=== PATIENT | male | born 1935 | race Caucasian/White ===

== ENCOUNTER → 2016-11-08 | Outpatient (CLI) | payer MEDICARE, BC ==
[~2016-11-08] MED LIST: EZET1TAB31 PO; INSU100C11 SQ; INSU100C8 SQ; LISI10TA7 PO; NAPR220T61 PO; NITR100C4 PO; PANT40TA27 PO; PHEN-779 PO; SUCR1TAB PO
== END ==
LOC: NEU 08:38
PROVIDERS: ATTEND Family Medicine
DX: M62.441 Contracture of muscle, right hand (principal); G56.01 Carpal tunnel syndrome, right upper limb; M54.12 Radiculopathy, cervical region
CPT/HCPCS: 95886; 95909

== ENCOUNTER 2016-11-30 06:48 | Outpatient (CLI) | payer MEDICARE, BC ==
[~2016-11-30] VITALS: Ht 171.4 cm; Wt 84.7 kg
[2016-11-30] VITALS (10 sets, daily range): BP systolic 118–137; BP diastolic 65–69; PULSE 58–78; RESP 16; TEMP 96–97.4; O2SAT 94–97; Ht 171.4 cm; Wt 84.7 kg
[~2016-11-30 06:48] MED LIST changes: -NAPR220T61 PO; -PHEN-779 PO; -SUCR1TAB PO; +TRAM50TA4 PO
--- NOTE | 2016-11-30 06:55 | NUR ---
ADMIT PATIENT IS ADMITTED TO ROOM 132 AT THIS TIME. PATIENT IS ALERT AND ORIENTED X3. PATIENT AMBULATED TO ROOM. PATIENT VITALS ARE STABLE AND PATIENT IS ON ROOM AIR.
[2016-11-30] MEDS ORDERED: METH5TAB6 PO (08:09)
[2016-11-30] MEDS ORDERED: NITR0.4T39 SL (08:10)
[2016-11-30 08:15] LABS: INR 1.21 (0.76-1.04); PROTHROMBIN TIME 13.2 SEC (9.31-12.49)
[2016-11-30] MEDS ORDERED: IOHEXOL 300 MG/ML 50ml INJECTION ONE (08:28)
--- NOTE | 2016-11-30 08:30 | NUR ---
OFF UNIT PATIENT IS OFF UNIT AT THIS TIME. PATIENT LEFT FLOOR VIA WHEELCHAIR AND IMAGING STAFF. PATIENT IS ALERT AND ORIENTED X3.
--- NOTE | 2016-11-30 09:28 | NUR ---
BACK TO UNIT PATIENT IS BACK TO UNIT AT THIS TIME. PATIENT VITALS ARE STABLE AND PATIENT IS ON ROOM AIR.
--- NOTE | 2016-11-30 09:53 | DI ---
Indication: ITS.REASON: m54.2 neck pain PROCEDURE: CT MYELOGRAM CERVICAL SPINE: Encounter: Initial Comparison: Cervical spine radiographs to August 14, 2016 Technique: Axial CT imaging through the cervical spine was performed after the administration of intrathecal contrast. The myelogram injection is described in a separate procedural report. Coronal and sagittal two-dimensional reformats. Automated Exposure Control and Iterative Reconstruction dose reducing techniques were utilized. Findings: Alignment of the cervical spine is straightened. Anterior C4-C6 spinal fusion with interbody bone grafts. There is mild incorporation of the C5-C6 bone graft with no significant incorporation of the C4-C5 graft. No evidence of hardware loosening or failure. No acute fracture identified. Good opacification of the central spinal canal. No obvious cord impingement. Paraspinal soft tissues are grossly unremarkable apart from a left thyroid nodule. Segmental analysis: C2-C3: Degenerative facet disease without focal disk herniation or central canal stenosis. There is mild to moderate left and mild right neural foraminal stenosis with uncovertebral hypertrophy. C3-C4: No focal disk herniation or central canal stenosis. Degenerative facet hypertrophy right greater than left causing severe right neural foraminal stenosis. No significant left foraminal narrowing. C4-C5: No focal disk herniation or central canal stenosis. Degenerative facet and uncovertebral changes resulting in mild left neural foraminal narrowing. No significant right foraminal narrowing. C5-C6: Central osteophyte formation slightly effacing the thecal sac without true central canal stenosis. Degenerative facet and uncovertebral changes on the left causing moderate neural foraminal stenosis. No significant right foraminal narrowing. C6-C7: Small central osteophyte without central canal stenosis. Degenerative uncovertebral changes resulting in moderate left and mild right neural foraminal stenosis. C7-T1: Prominent disk osteophyte complex effacing the thecal sac with mild central canal narrowing. Degenerative facet and uncovertebral change resulting in severe left and moderate right neural foraminal stenosis. Impression: Degenerative and postoperative changes as above. .
--- NOTE | 2016-11-30 10:03 | DI ---
INDICATION: ITS.REASON: CERVICALGIA Ordering physician:FARNAZ TORRES Procedure:MYELOGRAM CERVICAL INJECTION FOR CT MYELOGRAM: The procedure including the benefits, risks, and alternatives were explained in detail to the patient. All of their questions were answered. He stated that he understood and wished to proceed. Informed consent was obtained. A preprocedural timeout was performed to confirm the correct patient and procedure. Using sterile technique, local Xylocaine anesthesia, and fluoroscopic guidance throughout, a 22 G spinal needle was advanced from a posterior approach into the subarachnoid space at the L3-4 level. A fluoroscopic image was then obtained and archived. Removal of the stylet showed clear colorless CSF. 15 cc of Omnipaque 300 was slowly instilled within the intrathecal space. The needle was then removed. Fluoroscopic images were then obtained. Following this, the patient was transferred to the CT department for their scan. Please see the separate CT report. Impression: Successful intrathecal injection of contrast for a CT cervical myelogram. Fluoroscopy dose: 27.57 mGy (Cumulative air kerma) Raf Chu RPA/AGUSTINA performed this under my personal supervision. .
[2016-11-30] MEDS ORDERED: ACETAMINOPHEN 325 MG TABLET PO PRN (11:00)
--- NOTE | 2016-11-30 11:40 | NUR ---
DISCHARGE PATIENT IS ALERT AND ORIENTED X3. PATIENT VITALS ARE STABLE AND PATIENT IS ON ROOM AIR. PATIENT DENIES CP, NAUSEA, AND SOA. PATIENT DISCHARGE INSTRUCTIONS INCLUDE: CONTINUED MEDICATIONS, ACTIVITY, SIGNS AND SYMPTOMS OF INFECTION, AND REASONS TO CALL DOCTOR AND/OR SEEK IMMEDIATE CARE. PERSONAL BELONGINGS RETURNED. PATIENT LEFT VIA AMBULATION FROM ER ENTRANCE. PATIENT TRANSPORTED HOME FOR SELF CARE BY FRIEND.
== END 2016-11-30 11:40 | disposition home or self-care (01) ==
LOC: SRG 06:48 → IMA 06:48
PROVIDERS: ATTEND Radiology Diagnostic Radiology
DX: M47.812 Spondylosis without myelopathy or radiculopathy, cervical region (principal); Z98.1 Arthrodesis status; K25.9 Gastric ulcer, unspecified as acute or chronic, without hemorrhage or perforation; M54.2 Cervicalgia
CPT/HCPCS: 36415; 62302; 72126; 85049; 85610; Q9967

== ENCOUNTER → 2016-12-21 | Outpatient (CLI) | payer MEDICARE, BC ==
[~2016-12-21] MED LIST changes: +METH5TAB6 PO; +NITR0.4T39 SL
--- NOTE | 2016-12-21 17:20 | DI ---
EXAM: MRI SHOULDER RIGHT W/O CONTRAS LOCATION OF DICTATION: [facility] [place] HISTORY: ITS.REASON: M25.511 PAIN IN RIGHT SHOULDER COMPARISON: None available. TECHNIQUE: Coronal oblique T-1 weighted, proton weighted, T-2 weighted, T-2 weighted with fat saturation, axial and sagittal oblique T-2 weighting with fat saturation images were obtained through the shoulder. FINDINGS: AC JOINT: There is mild to moderate AC joint arthrosis with mild to moderate inferior mass effect on the musculotendinous junction of the supraspinatus. BURSA: There is a moderate amount of fluid signal seen in the subacromial and subdeltoid bursa consistent with bursitis. SUPRASPINATUS: There is obliquely oriented increased T2 signal within the intrasubstance of the anterior fibers of the supraspinatus tendon without retraction identified. There is tendinosis of the mid and posterior fibers. SUBSCAPULARIS: Unremarkable. BICEPS: The long head of the biceps tendon is seen within the bicipital groove. Fluid is seen within the bicipital groove. Its attachment to the superior labrum is thought to be intact. LABRUM: What is seen of the labrum appears to be intact. However, the attachment of the inferior glenohumeral ligament to the anterior labrum could be disrupted but is equivocal. BONES: There may be some subchondral edema at the greater tuberosity from degenerative change. COMMENTS: IMPRESSION: 1. Moderate AC joint arthrosis with moderate inferior mass effect which could contribute to impingement. 2. There is marked increased intrasubstance T2 signal change within the anterior fibers of the supraspinous tendon and an obliquely oriented full-thickness tear cannot be excluded although no retraction is identified. There is tendinosis of the mid and posterior fibers. 3. Moderate subacromial and subdeltoid bursitis. 4. The labrum is thought to be intact although the attachment of the inferior glenohumeral ligament could be disrupted. However this is equivocal. .
== END ==
LOC: IMA 13:38
PROVIDERS: ATTEND Family Medicine
DX: M25.511 Pain in right shoulder (principal); M19.011 Primary osteoarthritis, right shoulder; M75.51 Bursitis of right shoulder; R93.7 Abnormal findings on diagnostic imaging of other parts of musculoskeletal system